=== PATIENT | female | born 1955 | race Caucasian/White ===

== ENCOUNTER 2020-08-09 06:44 | Outpatient (CLI) | payer MEDICARE ==
[2020-08-09 17:12] LABS: SARS-CoV-2 MS2 Positive; SARS-CoV-2 N Gene Negative; SARS-CoV-2 S Gene Negative; SARS-CoV-2 by NAA Not Detected (NotDetected); SARS-CoV-2 orf1ab Negative
== END 2020-08-09 06:45 | disposition home or self-care (01) ==
LOC: LABBT 06:44
PROVIDERS: ATTEND Internal Medicine Gastroenterology
DX: Z01.812 Encounter for preprocedural laboratory examination (principal); Z86.010 Personal history of colon polyps; Z20.828 Contact with and (suspected) exposure to other viral communicable diseases
CPT/HCPCS: 87635; U0003

== ENCOUNTER 2020-08-14 09:06 | Day surgery (SDC) | payer MEDICARE ==
[2020-08-13 10:01] VITALS: BMI 50.3
[~2020-08-14 09:06] MED LIST: PROPOFOL 200 MG/20 ML VIAL ONE
--- NOTE | 2020-08-14 13:48 | OP ---
DATE OF PROCEDURE: 08/14/2020 PROCEDURE PERFORMED: Colonoscopy with polypectomy. PREPROCEDURE DIAGNOSIS: Colorectal cancer high-risk screening with prior history of polyps. ANESTHESIA: TIVA. POSTPROCEDURE DIAGNOSES: 1. 5 mm semipedunculated sigmoid colon polyp, removed by cold snare polypectomy and submitted to Pathology. 2. Internal hemorrhoid. RECOMMENDATIONS: 1. Repeat colonoscopy in 5 years. 2. Await histopathology. DESCRIPTION OF PROCEDURE: After the patient was informed of the risks, benefits, possible complications, she signed informed consent. She was brought to endoscopy suite, where she was sedated in gradual fashion. Rectal examination revealed internal hemorrhoids. The endoscope was advanced into the anal canal through the colon to the cecum, which was identified by ileocecal valve and the appendiceal orifice. The prep was good. There was a semipedunculated 5 to 6 mm polyp in the proximal sigmoid colon, removed by cold snare polypectomy. There was diffuse diverticula with no bleeding. Retroflexed views revealed internal hemorrhoids. No other lesions. The scope was removed. The patient tolerated the procedure well. There were no complications. Job ID: [id number]
== END 2020-08-14 13:40 | disposition home or self-care (01) ==
LOC: SDC 09:06
PROVIDERS: ATTEND Internal Medicine Gastroenterology
PROC: 0DBN8ZX Excision of Sigmoid Colon, Via Natural or Artificial Opening Endoscopic, Diagnostic (ICD-10-PCS; principal; 2020-08-14)
DX: Z12.11 Encounter for screening for malignant neoplasm of colon (principal); D12.5 Benign neoplasm of sigmoid colon; K57.30 Diverticulosis of large intestine without perforation or abscess without bleeding; K64.8 Other hemorrhoids; F41.9 Anxiety disorder, unspecified; F32.9 Major depressive disorder, single episode, unspecified; E11.9 Type 2 diabetes mellitus without complications; I10 Essential (primary) hypertension; G35 Multiple sclerosis; E07.9 Disorder of thyroid, unspecified; Z86.010 Personal history of colon polyps; Z79.4 Long term (current) use of insulin; Z79.82 Long term (current) use of aspirin; Z79.899 Other long term (current) drug therapy; Z91.040 Latex allergy status
CPT/HCPCS: 36416; 88305; J2704

== ENCOUNTER 2025-08-20 05:42 | Day surgery (SDC) | payer MEDICARE ==
[2025-08-20] MEDS ORDERED: PROPOFOL 40 ML ONE (07:38)
[2025-08-20] MEDS ORDERED: Lidocaine 1% PF 5 ML VIAL ONE (07:38)
[2025-08-20] MEDS ORDERED: GLYCOPYRROLATE/PF 0.2 MG/ML VIAL ONE (07:38)
[2025-08-20] MEDS ORDERED: PROPOFOL 200 MG/20 ML VIAL ONE (07:58)
== END 2025-08-20 09:03 | disposition home or self-care (01) ==
LOC: SDC 05:42
PROVIDERS: ATTEND Internal Medicine Gastroenterology
PROC: 0DBL8ZZ Excision of Transverse Colon, Via Natural or Artificial Opening Endoscopic (ICD-10-PCS; principal; 2025-08-20)
DX: Z12.11 Encounter for screening for malignant neoplasm of colon (principal); D12.3 Benign neoplasm of transverse colon; K64.8 Other hemorrhoids; K64.4 Residual hemorrhoidal skin tags; K57.30 Diverticulosis of large intestine without perforation or abscess without bleeding; I10 Essential (primary) hypertension; E11.9 Type 2 diabetes mellitus without complications; Z90.49 Acquired absence of other specified parts of digestive tract; Z79.84 Long term (current) use of oral hypoglycemic drugs; Z79.899 Other long term (current) drug therapy; Z91.040 Latex allergy status; Z86.0100 Personal history of colon polyps, unspecified
CPT/HCPCS: 45385; J2704; J3490; 88305